=== PATIENT | male | born 1975 | race Caucasian/White ===

== ENCOUNTER 2024-06-01 08:03 | Emergency (ER) | payer BC, SELFPAY ==
[2024-06-01 08:24] VITALS: BP 131/84; PULSE 87; RESP 18; TEMP 36.5; O2SAT 98
--- NOTE | 2024-06-01 08:41 | ED.GENADULT ---
HPI - General Adult General Chief complaint: Upper Respiratory Infection Stated complaint: congestion and drainage Time Seen by Provider: 06/01/24 08:41 Source: patient Mode of arrival: ambulatory Limitations: no limitations History of Present Illness HPI narrative: 49-year-old male patient presents to the [facility] with complaints of cold symptoms for the past 5 days. Patient states he has had a lot of congestion, runny nose, blowing out green snot. Patient states mild cough but no chest pain or shortness of breath. No fevers, body aches or chills. Patient states both of his children were diagnosed with pneumonia earlier this week. Patient states he has been taking Advil and Afrin for his symptoms. Related Data Home Medications Medication Instructions Recorded Confirmed No Home Medications 06/01/24 06/01/24 Allergies Allergy/AdvReac Type Severity Reaction Status Date / Time No Known Allergies Allergy Verified 06/01/24 08:33 Review of Systems Review of Systems: CONSTITUTIONAL: Denies fever, chills, or sweats. EYES: Denies visual changes, redness, or discharge. ENT: Positive rhinorrhea, congestion, denies sore throat, or otalgia. CARDIOVASCULAR: Denies chest pain, palpitations, or edema. RESPIRATORY: positive mild cough , denies dyspnea. GASTROINTESTINAL: Denies abdominal pain, nausea, vomiting, or diarrhea. GENITOURINARY: Denies dysuria or hematuria. SKIN: Denies rash or itching. MUSCULOSKELETAL: Denies back pain, joint pain, or myalgia. NEUROLOGIC: positive headache, denies numbness, or weakness. PSYCHIATRIC: Denies anxiety or depression. [facility] Past Medical History Medical History Epididymitis Screening cholesterol level Screening for prostate cancer Testicular pain Surgical History Surgical History No history of previous surgery Family History Family History Father Acute myocardial infarction Grandparent Cancer Social History Social History Smoking status: Never smoker Alcohol intake: current Substance use: never Lack of Transportation: No Lack of Food: Never True Current Housing: I Have Housing Concerned About Future Housing: No Difficulty Paying Gas/Electric Bills: No Difficulty Paying for Meds: No Currently Unemployed: No Education: Don't Know Difficulty w/ Childcare or Family Care: No Living arrangements: with family Occupation/Education: occupation 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 There is no relevant family history pertinent to the presenting complaint. Exam Narrative: GENERAL: Well-appearing, well-nourished, and in no acute distress. HEAD: Normocephalic, atraumatic. EYES: PERRLA and EOMI. ENT: Nares with erythema edema noted bilaterally, no active rhinorrhea or epistaxis. Mucous membranes moist. posterior pharynx with no erythema, tonsillar enlargement, exudates or lesions present. Bilateral TMs are clear with no erythema or foreign bodies the canal. NECK: Supple. No lymphadenopathy CHEST: Clear to auscultation. No respiratory distress. Patient able talk in clear complete sentences. No cough noted during exam. HEART: Regular rate and rhythm. No murmur heard. Normal peripheral pulses. ABDOMEN: Soft, nontender, nondistended, normal active bowel sounds. EXTREMITIES: Normal range of motion. No edema. SKIN: Warm, dry, no rash. NEURO: No focal deficits. Alert and oriented x3. Course Course Level of Care: Express Care Visit Vital Signs Vital signs: Vital Signs Temperature 36.5 C 06/01/24 08:24 Pulse Rate 87 06/01/24 08:24 Respiratory Rate 18 06/01/24 08:24 Blood Pressure 131/84 06/01/24 08:24 Pulse Oximetry 98 06/01/24 08:24 Oxygen Delivery Room Air 06/01/24 08:24 Temperature 36.5 C 06/01/24 08:24 Pulse Rate 87 06/01/24 08:24 Respiratory Rate 18 06/01/24 08:24 Blood Pressure 131/84 06/01/24 08:24 Pulse Oximetry 98 06/01/24 08:24 Oxygen Delivery Room Air 06/01/24 08:24 Vital signs reviewed. Medical Decision Making MDM Narrative Medical decision making narrative: Plan of care patient is to swab him today for influenza and COVID. Discussed with him that I do not hear any crackles in lungs he is not running any fevers any barely has a cough and I do not think that he has pneumonia. Discussed with him this is most likely viral which can take up to 10 days to go away. Discussed with patient he can use [id number] antihistamine such as Zyrtec, Claritin or Judi and we will re-evaluate him once the swabs have resulted. Differential Diagnosis Differential Diagnosis: Differential diagnosis: Allergic rhinitis, chronic sinusitis, tonsillitis, acute sinusitis, infectious mononucleosis, seasonal influenza, pertussis, diphtheria, meningococcal disease, viral syndrome, viral bronchitis, RSV, COVID-19 Vital Signs Vital Signs: Vital Signs Temperature 36.5 C 06/01/24 08:24 Pulse Rate 87 06/01/24 08:24 Respiratory Rate 18 06/01/24 08:24 Blood Pressure 131/84 06/01/24 08:24 Pulse Oximetry 98 06/01/24 08:24 Oxygen Delivery Room Air 06/01/24 08:24 Temperature 36.5 C 06/01/24 08:24 Pulse Rate 87 06/01/24 08:24 Respiratory Rate 18 06/01/24 08:24 Blood Pressure 131/84 06/01/24 08:24 Pulse Oximetry 98 06/01/24 08:24 Oxygen Delivery Room Air 06/01/24 08:24 Lab Data Labs: Lab Results 06/01/24 Range/Units 08:57 POC Influenza A Ag Negative (Negative) POC Influenza B Ag Negative (Negative) POC SARS CoV-2 Ag Negative (Negative) Critical Care Time Critical Care Time Critical Care Time: No Discharge Plan Discharge Clinical Impression: Viral URI Patient Disposition: Home, Self-Care Condition: Stable Instructions: Antibiotic Form, Viral Syndrome (ED) Additional Instructions: Viral illness may last between 7-12days; antibiotic is NOT recommended at this time. Recommend antihistamine such as Benadryl at night time and Claritin/Zyrtec/Judi during the day Cough syrup may cause drowsiness; avoid driving or take it at night time. Use inhaler as needed for cough, wheezing, shortness of breath or chest tightness. Also, recommend symptomatic treatment includes: rest, fluids, and increase humidity of the air at home. Recommend Acetaminophen or nonsteroidal anti-inflammatory agents (NSAIDs) as directed in the bottle to reduce fever and/pain/headache. Avoid smoking/second-hand smoke. Limit visits to areas with large crowds. Please schedule a follow-up visit with your personal physician for further evaluation and treatment within 3-5days. Including recheck and discussion of your blood pressure. If your symptoms persist, change or worsen significantly before you can contact your personal physician then please, without delay, go to the emergency department for further evaluation. Prescriptions: No Action No Home Medications Follow-up/Referrals: UNKNOWN,DOCTOR [Primary Care Provider] - Time of Disposition: 09:01
[2024-06-01 08:59] LABS: EDCOVIDSCREEN Negative (Negative); EDINFLUASCREEN Negative (Negative); EDINFLUBSCREEN Negative (Negative)
== END 2024-06-01 09:07 | disposition home or self-care (01) ==
PROVIDERS: Emergency Provider Nurse Practitioner Family
DX: J06.9 Acute upper respiratory infection, unspecified (principal); Z20.822 Contact with and (suspected) exposure to COVID-19
CPT/HCPCS: 87426; 87804; 99212; G0463